=== PATIENT | male | born 1990 | race Caucasian/White ===

== ENCOUNTER 2017-03-10 13:07 | Emergency (ER) | payer MEDICAID ==
[~2017-03-10] VITALS: Ht 165.1 cm; Wt 58.0 kg
[2017-03-10 13:27] VITALS: Ht 165.1 cm; Wt 58.0 kg
--- NOTE | 2017-03-10 14:14 | ERD ---
ER Documentation Chief Complaint Date/Time DATE: 03/10/17 TIME: 14:12 Chief Complaint traumatic fall yesterday-right shoulder & hip pain, no head injury; no ap HPI Very pleasant 27-year-old male who presents the emergency room with right shoulder pain and right hip pain status post fall. The patient states that he was working yesterday on a roof and fell off with the latter. The patient landed on the right side of his body. He denies head trauma or loss of consciousness. The patient now describes moderate pain to the right shoulder with difficulty fully abducting his right upper extremity. The patient denies any neck pain. He also describes mild right hip pain but no difficulty ambulating. He denies any chest wall pain or abdominal pain no difficulty breathing. No neck pain. ROS All systems reviewed and are negative except as per history of present illness. Medications Home Meds Active Scripts Ibuprofen* (Motrin*) 800 Mg Tab, 800 MG PO Q6H Y for PAIN AND OR ELEVATED TEMP, #30 TAB Prov:YUE NORMAN MD 03/10/17 Allergies Allergies: Coded Allergies: No Known Allergy (Unverified , 03/10/17) FmHx Family History: No diabetes Physical Exam Vitals Vital Signs Date Time Temp Pulse Resp B/P Pulse Ox O2 Delivery O2 Flow Rate FiO2 03/10/17 13:27 98.3 75 18 107/61 97 Physical Exam Airway is intact Bilateral breath sounds Strong distal pulses No obvious deficits General: Well developed, well nourished, no acute distress Head: Normocephalic, atraumatic Eyes: Pupils equally reactive, EOM intact ENT: Moist mucous membranes Neck: Supple, no lymphadenopathy, No midline tenderness, deformities, step-offs to the cervical spine, full active and passive range of motion without midline pain. Respiratory: Lungs clear bilaterally, no distress, no chest wall tenderness, no crepitus Cardiovascular: RRR, no murmurs, rubs, or gallops Abdominal: Soft, non-tender, non-distended, no peritoneal signs, pelvis is stable : Deferred MSK: No edema, no unilateral swelling, 5/5 strength, no midline tenderness deformities or step-offs to the thoracolumbar spine. The patient has slightly limited range of motion with full abduction of the right shoulder. The patient has mild soft tissue tenderness near the AC joint but no obvious deformities. Patient has no tenderness to the clavicle. Right hip with full active and passive range of motion, steady gait Neurologic: Alert and oriented, moving all extremities, normal speech, no focal weakness, no cerebellar signs Skin: No ecchymoses or bruising to the chest or abdomen Psych: Normal mood Results 24 hrs Current Medications Medications (Trade) Dose Ordered Sig/Lizeth Route PRN Reason Start Time Stop Time Status Last Admin Dose Admin Ibuprofen (Motrin) 800 mg ONCE ONCE PO 03/10/17 14:30 03/10/17 14:31 DC 03/10/17 15:10 Procedures/MDM EKG, MONITORS, & DIAGNOSTIC IMAGING: X-ray right shoulder: I reviewed and interpreted multiple views of the x-ray Bones: No evidence of acute fracture dislocation or subluxation Soft tissue: No evidence of foreign body MEDICAL DECISION MAKING: Patient had a significant fall from a roof. However he did not hit his head or lose consciousness. The patient is describing right shoulder and right hip pain. Right hip pain is nonspecific, the patient has full active and passive range of motion without evidence of pelvic fracture or hip fracture. The patient's right shoulder injury is likely consistent with contusion, consider possible AC sprain. Low concern for fracture, dislocation. I believe x-ray imaging would be appropriate. Early range of motion exercises advised. Motrin provided. The patient has not taken any pain medication since fall yesterday. No head trauma or loss of consciousness. The patient does not meet high-risk criteria and based on NEXUS cervical spine criteria there is no indication for cervical spine imaging at this time. ER COURSE: Patient given Motrin. X-ray imaging negative. Early range of motion exercises advised. Patient is safe for discharge. I kept the patient and/or family informed of laboratory and diagnostic imaging results throughout the emergency room course. DISPOSITION PLAN: We discussed follow up with the patient's primary care doctor within 24 to 48 hours as needed. We also discussed return to the emergency room for worsening symptoms or worsening condition. Outpatient referral: None required Discharge Medications: Motrin Departure Diagnosis: Primary Impression: Contusion of right shoulder Encounter type: initial encounter Qualified Code: S40.011A - Contusion of right shoulder, initial encounter Additional Impression: Contusion of right hip Encounter type: initial encounter Qualified Code: S70.01XA - Contusion of right hip, initial encounter Condition: Stable YUE NORMAN, MD Mar 10, 2017 14:14
[2017-03-10] MEDS ORDERED: IBUP800T25 PO (14:16)
[2017-03-10] MEDS ORDERED: IBUPROFEN 800 MG TAB PO ONE (14:30)
--- NOTE | 2017-03-10 14:36 | RADRPT ---
PROCEDURE: Right shoulder series CLINICAL INDICATION: Trauma and pain. TECHNIQUE: 3 views. COMPARISON: None FINDINGS: No fractures are noted. No dislocations are noted. No significant degenerative changes are noted. The glenohumeral joint space is well maintained. No erosions are noted. The soft tissues are unremarkable. IMPRESSION: 1. No bony abnormalities are identified. RPTAT: HGSG .Maxi Harrison MD, MD Date Time Electronically viewed and signed by .Maxi Harrison MD, on 03/10/2017 14:35 .G/
== END 2017-03-10 15:13 | disposition home or self-care (01) ==
LOC: FTE 13:07
DX: S40.011A Contusion of right shoulder, initial encounter (principal); S70.01XA Contusion of right hip, initial encounter; W18.39XA Other fall on same level, initial encounter; Y92.9 Unspecified place or not applicable
CPT/HCPCS: 73030; Z7502; Z7610